=== PATIENT | male | born 1950 | race Caucasian/White ===

== ENCOUNTER 2019-02-19 10:38 | Outpatient (CLI) | payer MEDICARE, BC ==
[2019-02-19 12:11] LABS: Hemoglobin 12.1 g/dL (14.0-18.0); Mean Corpuscular HGB CONC 33.2 g/dL (32.0-36.0); Mean Corpuscular Hemoglobin 31.9 pg (27.0-31.0); Mean Platelet Volume 8.1 fL (7.4-10.4); Platelet Count 168 thou/uL (130-400); RBC Distribution Width 14.9 % (11.5-14.5); Red Blood Cell (RBC) Count 3.81 mill/uL (4.70-6.10); White Blood Cell (WBC) Count 4.3 thou/uL (4.8-10.8)
[2019-02-19 12:12] LABS: Anion Gap 12 mmol/L (10-20); BUN (Urea Nitrogen) 19 mg/dL (8.4-25.7); Calc. Creatinine Clearance 0 mL/min (70-130); Calcium 9.1 mg/dL (7.8-10.44); Carbon Dioxide 26 mmol/L (23-31); Chloride 104 mmol/L (98-107); Estimated GFR-MDRD 54; Glucose 167 mg/dL (80-115); Potassium 4.2 mmol/L (3.5-5.1); Sodium 138 mmol/L (136-145)
--- NOTE | 2019-02-21 08:12 | EKG ---
Test Reason : Blood Pressure : / mmHG Vent. Rate : 078 BPM Atrial Rate : 078 BPM P-R Int : 126 ms QRS Dur : 088 ms QT Int : 374 ms P-R-T Axes : 073 026 052 degrees QTc Int : 426 ms Normal sinus rhythm Normal ECG When compared with ECG of 12-JUN-2014 06:39, No significant change was found Confirmed by DR. Ana CASTRO ([id number]) on 02/21/2019 8:11:58 AM Referred By: DANIELLE Confirmed By:DR. Ana CASTRO
== END 2019-02-19 10:39 | disposition home or self-care (01) ==
LOC: LABBT 10:38
PROVIDERS: ATTEND Neurological Surgery
DX: Z01.818 Encounter for other preprocedural examination (principal); M54.12 Radiculopathy, cervical region
CPT/HCPCS: 80048; 85027; 93005; 93010

== ENCOUNTER 2019-02-24 05:43 | Day surgery (SDC) | payer MEDICARE, BC ==
[2019-02-19 10:58] VITALS: BMI 27.4
--- NOTE | 2019-02-23 21:35 | HP ---
HISTORY OF PRESENT ILLNESS: Mr. Taylor is a very pleasant 68-year-old man here today for roughly 3 months worth of severe right-sided neck and shoulder pain that radiates into the trapezius and scapula on the right. He also reports restricted range of motion to the right secondary to pain. He has seen both Dr. has been receiving epidural steroid injections in the cervical spine which do help, but only for a few days at a time. 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 This fits well with his symptoms. I do not see any other areas of significant stenosis related to symptoms. He denies weakness, numbness, or clumsiness. He does have history of degenerative neck disease with prior ACDF C6-C7 performed many years ago elsewhere. He hopes to move forward with surgery to potentially fix this pain. PAST MEDICAL HISTORY: Significant for diabetes, hyperlipidemia, anxiety, coronary arterial disease. MEDICATIONS: 1. Actos. 2. Crestor. 3. Januvia. 4. Lexapro. 5. Clopidogrel. 6. Zetia. 7. Lantus. 8. Aspirin. 9. Lyrica. 10. Flomax. 11. Xanax. PAST SURGICAL HISTORY: Unspecified eye surgery, cardiac stents, right hip surgery. Lumbar decompression, ACDF. ALLERGIES: NO KNOWN DRUG ALLERGIES. PHYSICAL EXAMINATION: GENERAL: The patient is alert and oriented x3. MUSCULOSKELETAL: Restricted cervical range of motion particular to the right. Upper extremity, motor exam is normal. Positive Spurling's to the right. ASSESSMENT: Cervical radiculopathy. PLAN: Dr. Sims met with the patient, reviewed imaging, advocated for C3-C4 ACDF. He explained to the patient the risks, benefits, and alternatives of the procedure. The patient expressed understanding and elected to move forward with surgery as discussed. I do believe the patient is mentally competent and capable of making medical decisions for himself. We will move forward with surgery as planned. Job ID: [id number]
[2019-02-24] MEDS ORDERED: ceFAZolin Sodium (SDC) 2 GM/100 ML BAG ONE ×2 (06:09→10:45)
[2019-02-24] MEDS ORDERED: Thrombin 5000 UNITS/5 ML VIAL ONE (06:33)
[2019-02-24] MEDS ORDERED: Fentanyl 100 MCG/2 ML VIAL ONE ×2 (06:50→07:38)
--- NOTE | 2019-02-24 07:34 | PRG ---
DATE OF SERVICE: 02/24/2019 SUBJECTIVE: Mr. Taylor is a 68-year-old gentleman, evaluated in the outpatient setting by Dr. Tino Klein for a C4 radiculopathy. He had an MRI scan, which showed C3-C4 foraminal stenosis, which would correlate well with his symptoms. I talked to him by phone after the outpatient visit to review with him his imaging, diagnosis, and treatment options; at which time, he and I agreed upon a surgical approach with the C3-C4 ACDF. Today, I met with him in person for the first time, where again I reviewed with him and his the imaging, diagnosis, and treatment options as well as all the risks, benefits, and alternatives to surgical procedure. He continues to have what is predominantly a right-sided C4 pattern of pain. His MRI scan does have pathology, which correlates with that area. I did caution him that C3-C4 level ACDF can lead to protracted course of dysphagia and dysphonia. This was discussed in addition to all the other risks and benefits of surgery. Job ID: [id number]
[2019-02-24] MEDS ORDERED: SUGAMMADEX SODIUM 200 MG/2 ML VIAL ONE (08:10)
[2019-02-24] MEDS ORDERED: Tamsulosin HCl 0.4 MG CAP ONE (09:23)
[2019-02-24] MEDS ORDERED: HYDROcodone/Acetaminophen 5/325 mg Tablet ONE ×2 (10:09→12:00)
--- NOTE | 2019-02-24 10:52 | OP ---
DATE OF PROCEDURE: 02/24/2019 SOCIAL SCIENCE TEACHER: Tino Klein PA-C. INDICATION: Pain. DIAGNOSIS: Cervical radiculopathy. PROCEDURE PERFORMED: Anterior cervical diskectomy and fusion C3-4. ANESTHESIA: General. TECHNIQUE: The patient was brought into the operating room, placed under general anesthesia. He was placed on table in a supine position. A transverse incision was planned over the lateral aspect of the neck on the right. After prepping and draping and after an appropriate preoperative pause, the incision was created. The underlying platysma muscle was identified and incised. A blunt tissue plane anterior to the sternocleidomastoid muscle was used to gain access to the prevertebral space. Self-retaining retractors were placed in the wound for optimal exposure. After confirming the appropriate level with C-arm fluoroscopy, an annulotomy was performed in the C3-4 disk space. All disk material as well as anterior and posterior osteophytes were removed until the exiting nerve roots were decompressed. After decompressing the segment, an 8 mm lordotic PEEK cage packed with allograft and autograft material was placed within the interbody space. An anterior cervical plate was then fashioned to the front of spine and secured with a total of 4 fixed screws. Midline and lateral structures were inspected and found to be free from significant trauma. The wound was irrigated. Hemostasis was maintained throughout. The wound was then closed in anatomic layers and a pressure dressing was applied. There were no known procedural complications. Job ID: [id number]
== END 2019-02-24 15:55 | disposition home or self-care (01) ==
LOC: SDC 05:43
PROVIDERS: ATTEND Neurological Surgery
PROC: 0RG10A0 Fusion of Cervical Vertebral Joint with Interbody Fusion Device, Anterior Approach, Anterior Column, Open Approach (ICD-10-PCS; principal; 2019-02-24)
PROC: 0RG2071 Fusion of 2 or more Cervical Vertebral Joints with Autologous Tissue Substitute, Posterior Approach, Posterior Column, Open Approach (ICD-10-PCS; 2019-02-24)
PROC: 0RT30ZZ Resection of Cervical Vertebral Disc, Open Approach (ICD-10-PCS; 2019-02-24)
DX: M54.12 Radiculopathy, cervical region (principal); E11.9 Type 2 diabetes mellitus without complications; E78.5 Hyperlipidemia, unspecified; F41.9 Anxiety disorder, unspecified; I25.10 Atherosclerotic heart disease of native coronary artery without angina pectoris; Z79.4 Long term (current) use of insulin; Z79.82 Long term (current) use of aspirin; Z79.899 Other long term (current) drug therapy; Z95.5 Presence of coronary angioplasty implant and graft
CPT/HCPCS: 36416; 76000; C1713; C1776; J0690; J3010

== ENCOUNTER 2020-07-06 12:39 | Outpatient (CLI) | payer MEDICARE, BC ==
[~2020-07-06 12:39] MED LIST: Iopamidol 370 76% 100 ML VIAL ONE
--- NOTE | 2020-07-06 14:43 | CT ---
CT neck soft tissues with contrast: 07/06/2020 HISTORY: 69-year-old male with dysphagia. FINDINGS: There is ACDF hardware at C3-4, in which the metallic plate is anteriorly from the anterior surface of ther C3 vertebral body distance of approximately 6 mm, probably in order to accommodate the large anterior bridging osteophyte that protrudes into the prevertebral space at that level. The combination of this hardware and the large bridging osteophyte encroaches upon the posterior pharyngeal wall, and could potentially cause dysphagia. Such flowing bridging osteophytes are present from C3-4 through C7-T1, and are suggestive of DISH. There is also another set of ACDF metallic hardware at C6-7. There is multilevel high-grade bilateral facet DJD, including severe. There is an air-filled 2.5 x 2 x 0.7 cm sac in the right lateral paraglottic fat, close to the right side of the vallecula and close to the right piriform sinus. There is distention of the larynx and hypopharynx. There is heavy atherosclerotic calcification of the right carotid bulb, causing severe luminal stenos is. No cervical lymphadenopathy. No evidence of laryngeal mass. No evidence of Zenker's diverticulum or C[place]olo's diverticulum. The parapharyngeal, parotid, posterior cervical, sublingual, submandibular, and senior laboratory technician, spaces, a re unremarkable. IMPRESSION: 1.) Status post anterior cervical discectomy and fusion at C3-4 and C6-7. 2) DISH (diffuse idiopathic skeletal hyperostosis) 3) the ACDF hardware at C3-4, together with the DISH, encroach upon the posterior pharyngeal wall. Pe rhaps this is a source of the dysphagia? 4.) Right-sided laryngocele. 5) atherosclerotic plaque causing severe stenosis of the origin of the right internal carotid artery.
== END 2020-07-06 12:40 | disposition home or self-care (01) ==
LOC: BICCT 12:39
PROVIDERS: ATTEND Neurological Surgery
DX: R13.10 Dysphagia, unspecified (principal); I65.21 Occlusion and stenosis of right carotid artery; I25.10 Atherosclerotic heart disease of native coronary artery without angina pectoris; M48.12 Ankylosing hyperostosis [Forestier], cervical region; Q31.3 Laryngocele; Z98.1 Arthrodesis status; Z98.890 Other specified postprocedural states
CPT/HCPCS: 70491; 82565; Q9967

== ENCOUNTER 2020-08-03 11:24 | Outpatient (CLI) | payer MEDICARE, BC ==
[2020-08-04 02:23] LABS: SARS-CoV-2 MS2 Positive; SARS-CoV-2 N Gene Negative; SARS-CoV-2 S Gene Negative; SARS-CoV-2 by NAA Not Detected (NotDetected); SARS-CoV-2 orf1ab Negative
== END 2020-08-03 11:25 | disposition home or self-care (01) ==
LOC: LABBT 11:24
PROVIDERS: ATTEND Physician Assistant
DX: Z01.812 Encounter for preprocedural laboratory examination (principal); Q31.3 Laryngocele; T85.698A Other mechanical complication of other specified internal prosthetic devices, implants and grafts, initial encounter; Z20.828 Contact with and (suspected) exposure to other viral communicable diseases
CPT/HCPCS: 87635; U0003

== ENCOUNTER 2020-08-06 10:40 | Outpatient (CLI) | payer MEDICARE, BC ==
--- NOTE | 2020-08-06 16:39 | RAD ---
Modified barium swallow with speech therapist: 08/06/2020 HISTORY: 70-year-old male with dysphagia and feeding difficulties. "To see if his hardware is actually impacting his swallowing." Q31.3 laryngocele T85.698A malfunction of device FINDINGS: There is ACDF hardware at C3-4. The upper portion of the metallic plate indents the posterior pharyngeal wall at the level of the epi glottis. Premature free spillage with solids, with residue in vallecula, which subsequently clears with repeat swallows. Barium tablet passes easily into the esophagus. Adequate laryngeal elevation and hyoid protraction. The epiglottis is elongated. Its distal portion does not invert during swallowing. There is penetration. No zuri aspiration is identified. IMPRESSION: 1.) At least mild pharyngeal dysphagia. 2) the distal portion of the epiglottis does not invert 3) penetration 4) anterior cervical discectomy and fusion hardware at least mildly indents the posterior pharyngeal wall
== END 2020-08-06 10:41 | disposition home or self-care (01) ==
PROVIDERS: ATTEND Physician Assistant
DX: Q31.3 Laryngocele (principal); T85.698A Other mechanical complication of other specified internal prosthetic devices, implants and grafts, initial encounter; R13.13 Dysphagia, pharyngeal phase; Z98.1 Arthrodesis status
CPT/HCPCS: 74230

== ENCOUNTER 2021-12-16 10:14 | Outpatient (CLI) | payer MEDICARE, BC ==
[2021-12-16 11:36] LABS: Hemoglobin 13.3 g/dL (13.5-17.5); Mean Corpuscular HGB CONC 31.7 g/dL (32.0-36.0); Mean Corpuscular Hemoglobin 29.6 pg (27.0-33.0); Mean Corpuscular Volume 93.1 fl (81.2-95.1); Mean Platelet Volume 10.8 fl (7.4-10.4); Platelet Count 168 10x3/uL (150-450); RBC Distribution Width 16.9 % (11.5-14.5)
[2021-12-16 11:42] LABS: Anion Gap 15 mmol/L (10-20); BUN (Urea Nitrogen) 25 mg/dL (8.4-25.7); Calc. Creatinine Clearance 0 mL/min (70-130); Carbon Dioxide 25 mmol/L (23-31); Chloride 106 mmol/L (98-107); Glucose 190 mg/dL (83-110); Potassium 4.5 mmol/L (3.5-5.1); Sodium 141 mmol/L (136-145)
[2021-12-16 18:41] LABS: SARS-CoV-2 PCR by NAA Not Detected (NotDetected)
== END 2021-12-16 10:15 | disposition home or self-care (01) ==
LOC: LABBT 10:14
PROVIDERS: ATTEND Neurological Surgery
DX: Z01.818 Encounter for other preprocedural examination (principal); M54.12 Radiculopathy, cervical region; Z20.822 Contact with and (suspected) exposure to COVID-19
CPT/HCPCS: 80048; 85027; 93005; U0003; U0005; 93010

== ENCOUNTER 2021-12-21 08:42 | Day surgery (SDC) | payer MEDICARE, BC ==
[2021-12-20 08:19] VITALS: BMI 25.8
[2021-12-21] MEDS ORDERED: EPINEPHrine 1 MG/ML AMP ONE (09:28)
[2021-12-21] MEDS ORDERED: Bupivacaine PF 0.5% 30 ML VIAL ONE (09:28)
[2021-12-21] MEDS ORDERED: Thrombin 5000 UNITS/5 ML VIAL ONE (09:29)
[2021-12-21] MEDS ORDERED: Lidocaine 2% Jelly 5 ML TUBE ONE (09:42)
[2021-12-21] MEDS ORDERED: fentaNYL Citrate/PF 100 MCG/2 ML SYRINGE ONE (09:42)
[2021-12-21] MEDS ORDERED: CEFAZOLIN 2 GM VIAL ONE ×2 (09:45→14:02)
[2021-12-21] MEDS ORDERED: Sodium Chloride 0.9% 100 ML ONE ×2 (09:45→14:02)
[2021-12-21] MEDS ORDERED: Ondansetron PF 4 MG/2 ML Vial ONE (10:08)
[2021-12-21] MEDS ORDERED: Labetalol HCl 100 MG/20 ML VIAL ONE (10:08)
[2021-12-21] MEDS ORDERED: Glycopyrrolate 0.2 MG/ML 5 ML SYRINGE ONE (10:08)
[2021-12-21] MEDS ORDERED: PROPOFOL 200 MG/20 ML VIAL ONE (10:08)
[2021-12-21] MEDS ORDERED: Rocuronium Bromide 10 MG/ML (10ML VIAL) ONE (10:08)
[2021-12-21] MEDS ORDERED: Lidocaine 1% PF 5 ML VIAL ONE (10:08)
[2021-12-21] MEDS ORDERED: PHENYLEPHRINE-NS 100 MCG/ML 10 ML SYRINGE ONE (10:08)
[2021-12-21] MEDS ORDERED: ePHEDrine 50 MG/ML VIAL ONE (10:08)
[2021-12-21] MEDS ORDERED: Metoprolol Tartrate 5 MG/5 ML VIAL ONE (10:08)
[2021-12-21] MEDS ORDERED: Promethazine HCl 25 MG/ML VIAL IVPB PRN (11:34)
[2021-12-21] MEDS ORDERED: Ondansetron HCl/PF 4 MG/2 ML Vial IVP PRN (11:34)
[2021-12-21] MEDS ORDERED: Promethazine HCl 25 MG/ML VIAL IM PRN (11:34)
[2021-12-21] MEDS ORDERED: Tamsulosin HCl 0.4 MG CAP ONE (11:44)
[2021-12-21] MEDS ORDERED: Acetaminophen/Codeine 30-300mg Tablet ONE (13:15)
== END 2021-12-21 18:23 | disposition home or self-care (01) ==
LOC: SDC 08:42
PROVIDERS: ATTEND Neurological Surgery
PROC: 01N10ZZ Release Cervical Nerve, Open Approach (ICD-10-PCS; principal; 2021-12-21)
DX: M54.12 Radiculopathy, cervical region (principal); M48.02 Spinal stenosis, cervical region; E78.5 Hyperlipidemia, unspecified; G89.29 Other chronic pain; I51.9 Heart disease, unspecified; E11.9 Type 2 diabetes mellitus without complications; Z79.02 Long term (current) use of antithrombotics/antiplatelets; Z79.4 Long term (current) use of insulin; Z79.82 Long term (current) use of aspirin; Z79.84 Long term (current) use of oral hypoglycemic drugs; Z79.899 Other long term (current) drug therapy; Z95.5 Presence of coronary angioplasty implant and graft; Z98.1 Arthrodesis status
CPT/HCPCS: 63020; 63035; 76000; 82962; C1713; 36416; J0171; J3490; S0020

== ENCOUNTER 2021-12-22 13:22 | Emergency (ER) | payer MEDICARE, BC ==
[2021-12-22] MEDS ORDERED: Morphine 4 MG/ML VIAL ONE (14:55)
[2021-12-22] MEDS ORDERED: methylPREDNISolone Sod Succ/PF 125 MG/2 ML VIAL ONE (14:55)
[2021-12-22 15:49] LABS: Bilirubin Negative (Negative); Blood, Urine Negative (Negative); Glucose, Urine (Dipstick) Negative (Negative); Ketone, Urine Negative (Negative); Leukocyte Negative (Negative); Nitrite Negative (Negative); Protein, Urine (Dipstick) Negative (Neg-Trace); Urobilinogen 0.2 mg/dL (Less than 2); pH, Urine 5.5 (5.0-9.0)
[2021-12-22 15:53] LABS: Clarity Clear (Clear)
[2021-12-22 15:54] LABS: Bacteria/HPF None Seen HPF (None Seen); RBC/HPF None Seen HPF (0-3); Squamous Epithelial None Seen HPF (0-3); WBC/HPF None Seen HPF (0-3)
== END 2021-12-22 16:00 | disposition home or self-care (01) ==
LOC: ERS 13:22
DX: G89.18 Other acute postprocedural pain (principal); M54.2 Cervicalgia; E11.9 Type 2 diabetes mellitus without complications; E78.5 Hyperlipidemia, unspecified; I10 Essential (primary) hypertension; Z79.899 Other long term (current) drug therapy
CPT/HCPCS: 51702; 81003; 94760; 96374; 96375; J2270; J2930

== ENCOUNTER 2022-10-25 14:28 | Outpatient (CLI) | payer MEDICARE | END 2022-10-25 14:29 | disposition home or self-care (01) | LOC: BICCT 14:28 | PROVIDERS: ATTEND Neurological Surgery | DX: M47.22 Other spondylosis with radiculopathy, cervical region (principal); M48.02 Spinal stenosis, cervical region; Z98.1 Arthrodesis status | CPT/HCPCS: 72125 ==

== ENCOUNTER 2022-11-13 12:00 | Outpatient (CLI) | payer MEDICARE | END 2022-11-13 12:01 | disposition home or self-care (01) | LOC: BICRAD 12:00 | PROVIDERS: ATTEND Neurological Surgery | DX: M47.22 Other spondylosis with radiculopathy, cervical region (principal); Z98.1 Arthrodesis status | CPT/HCPCS: 72050 ==